=== PATIENT | female | born 1975 | race Caucasian/White ===

== ENCOUNTER 2019-10-01 16:45 | Emergency (ER) | payer BC, MEDICAID ==
[~2019-10-01] VITALS: Ht 170.2 cm; Wt 118.2 kg
[~2019-10-01 16:45] MED LIST: CYCL-1 PO
[2019-10-01] MEDS ORDERED: normal saline 1000ml 1,000 ML IV ONE (17:55)
[2019-10-01 18:08] LABS: BASOPHILS # (AUTO) 0.1 X10'3 (0-0.2); BASOPHILS % (AUTO) 0.9 % (0-1); EOSINOPHILS # (AUTO) 0.1 X10'3 (0-0.9); EOSINOPHILS % (AUTO) 1.8 % (0-6); HEMATOCRIT 41.3 % (35.0-45.0); HEMOGLOBIN 14.4 g/dl (12.0-16.0); LYMPHOCYTES # (AUTO) 1.8 X10'3 (1.1-4.8); LYMPHOCYTES % (AUTO) 23.7 % (21-51); MEAN CORPUSCULAR HEMOGLOBIN 32.8 PG (27.0-31.0); MEAN CORPUSCULAR HGB CONC 34.9 g/dL (33.0-36.5); MEAN CORPUSCULAR VOLUME 94.1 FL (78-98); MEAN PLATELET VOLUME 8.3 FL (7.4-10.4); MONOCYTES # (AUTO) 0.5 X10'3 (0-0.9); MONOCYTES % (AUTO) 6.4 % (2-12); NEUTROPHILS # (AUTO) 5.2 X10'3 (1.8-7.7); NEUTROPHILS % (AUTO) 67.2 % (42-75); PLATELET COUNT 176 X10'3 (140-440); RED BLOOD COUNT 4.39 X10'6 (4.20-5.60); RED CELL DISTRIBUTION WIDTH 12.7 % (11.5-14.5); WHITE BLOOD COUNT 7.8 X10'3 (4.5-11.0)
[2019-10-01 18:16] LABS: ALBUMIN 3.5 G/DL (3.4-5.0); ANION GAP 6 (8-16); BLOOD UREA NITROGEN 11 MG/DL (7-18); BUN/CREATININE RATIO 11.7 (6.6-38.0); CALCIUM 8.7 MG/DL (8.5-10.1); CHLORIDE 105 MMOL/L (99-107); CREATININE 0.94 MG/DL (0.40-0.90); GLUCOSE 120 MG/DL (70-104); POTASSIUM 3.6 MMOL/L (3.5-5.1); SODIUM 139 MMOL/L (135-145); TOTAL CARBON DIOXIDE 28.3 MMOL/L (24-32); eGFR 65 ML/MIN
[2019-10-01 19:42] VITALS: BP 160/94
== END 2019-10-01 19:40 | disposition home or self-care (01) ==
LOC: ER 16:47
DX: R06.02 Shortness of breath (principal); R51 Headache; R07.9 Chest pain, unspecified; R05 Cough; Z20.828 Contact with and (suspected) exposure to other viral communicable diseases; Z98.890 Other specified postprocedural states; Z79.899 Other long term (current) drug therapy
CPT/HCPCS: 36415; 71045; 80048; 85025; 93005; 99285; J7030; U0003

== ENCOUNTER 2021-05-20 07:45 | Emergency (ER) | payer SELFPAY ==
[~2021-05-20] VITALS: Ht 170.2 cm; Wt 121.2 kg
--- NOTE | 2021-05-20 08:05 | NUR ---
Pt with bite wound to left medial knee, subcutaneous tissue exposed. Bleeding controlled at this time.
[2021-05-20] MEDS ORDERED: amox tr/potassium clavulanate 875/125mg TAB PO ONE (08:20)
[2021-05-20] MEDS ORDERED: bacitracin 15gm ointment TP ONE (08:20)
[2021-05-20] MEDS ORDERED: TETanus/Pertussis (Acell)/Diphther VAC/PF (Tdap-Adult) 0.5ml syringe IMVAC ONE (08:20)
[2021-05-20] MEDS ORDERED: ondansetron 4mg rapidly disintigrating tab PO ONE (08:20)
[2021-05-20] MEDS ORDERED: AMOX-115 PO ×2 (08:27→09:09)
[2021-05-20 09:13] VITALS: BP 165/95
== END 2021-05-20 09:16 | disposition home or self-care (01) ==
LOC: ER 07:46
DX: S71.112A Laceration without foreign body, left thigh, initial encounter (principal); Z79.899 Other long term (current) drug therapy; Z98.891 History of uterine scar from previous surgery; W54.0XXA Bitten by dog, initial encounter; Y93.89 Activity, other specified; Y92.89 Other specified places as the place of occurrence of the external cause; Y99.8 Other external cause status; Z79.2 Long term (current) use of antibiotics
CPT/HCPCS: 12001; 99283

== ENCOUNTER 2024-04-20 15:48 | Emergency (ER) | payer OTHER ==
[~2024-04-20] VITALS: Ht 170.2 cm; Wt 115.2 kg
[2024-04-20] VITALS (8 sets, daily range): BP systolic 115; BP diastolic 88; PULSE 84–106; RESP 18–20; TEMP 99.6; O2SAT 92–99
[2024-04-20 16:42] LABS: BASOPHILS # (AUTO) 0.1 X10'3 (0-0.2); BASOPHILS % (AUTO) 1.1 % (0-1); EOSINOPHILS % (AUTO) 18.8 % (0-6); HEMATOCRIT 45.1 % (35.0-45.0); HEMOGLOBIN 15.4 g/dl (12.0-16.0); LYMPHOCYTES # (AUTO) 2.6 X10'3 (1.1-4.8); LYMPHOCYTES % (AUTO) 24.6 % (21-51); MEAN CORPUSCULAR HEMOGLOBIN 32.8 PG (27.0-31.0); MEAN CORPUSCULAR HGB CONC 34.2 g/dL (33.0-36.5); MEAN CORPUSCULAR VOLUME 95.9 FL (78-98); MEAN PLATELET VOLUME 8.5 FL (7.4-10.4); MONOCYTES # (AUTO) 0.7 X10'3 (0-0.9); MONOCYTES % (AUTO) 7.1 % (2-12); NEUTROPHILS # (AUTO) 5.1 X10'3 (1.8-7.7); NEUTROPHILS % (AUTO) 48.4 % (42-75); PLATELET COUNT 268 X10'3 (140-440); RED CELL DISTRIBUTION WIDTH 13.1 % (11.5-14.5); WHITE BLOOD COUNT 10.5 X10'3 (4.5-11.0)
[2024-04-20 17:03] LABS: ALANINE AMINOTRANSFERASE 25 U/L (12-78); ALBUMIN 3.9 G/DL (3.4-5.0); ALBUMIN/GLOBULIN RATIO 0.9 (1.1-1.5); ALKALINE PHOSPHATASE 44 IU/L (46-116); ANION GAP 11 (8-16); ASPARTATE AMINO TRANSFERASE 16 U/L (10-37); BILIRUBIN,TOTAL 0.2 MG/DL (0.1-1.0); BLOOD UREA NITROGEN 13 MG/DL (7-18); BUN/CREATININE RATIO 15.7 (10.0-20.0); CALCIUM 9.1 MG/DL (8.5-10.1); CHLORIDE 103 MMOL/L (99-107); CREATININE 0.83 MG/DL (0.40-0.90); GLUCOSE 101 MG/DL (70-104); POTASSIUM 4.2 MMOL/L (3.5-5.1); SODIUM 139 MMOL/L (135-145); TOTAL CARBON DIOXIDE 24.9 MMOL/L (24-32); TOTAL PROTEIN 8.3 G/DL (6.4-8.2); eCRCL 81 ML/MIN; eGFR 73 ML/MIN
[2024-04-20 17:10] LABS: PRO BRAIN NATRIURETIC PEPTIDE 122 PG/ML (0-125)
[2024-04-20] MEDS: albuterol 2.5 MG/3 ML nebule NEB ONE ×2 (17:39→21:34)
[2024-04-20] MEDS: methylPREDNISolone sod succ 125mg/2ml vial IV ONE (19:07)
[2024-04-20] MEDS: normal saline 1000ML IV soln IVB ONE (19:48)
[2024-04-20] MEDS: acetaminophen 325mg tablet PO ONE (19:48)
[2024-04-20] MEDS: ipratropium/albuterol 3ml nebule NEB ONE (19:56)
[2024-04-20 19:58] LABS: BILIRUBIN,URINE NEGATIVE (Neg); CLARITY,URINE TURBID (Clear); COLOR,URINE YELLOW (Yellow); GLUCOSE, URINE NEGATIVE (Neg); KETONES,URINE NEGATIVE (Neg); LEUKOCYTE ESTERASE ,URINE SMALL (Neg); NITRITES, URINE NEGATIVE (Neg); OCCULT BLOOD,URINE NEGATIVE (Neg); PROTEIN,URINE 100 mg/dl (Neg); URINE HCG NEGATIVE (NEG); UROBILINOGEN,URINE 0.2 E.U/dL (0.2-1.0)
[2024-04-20 20:05] LABS: UA COLLECTION TYPE CLN CATCH MIDSTREAM
[2024-04-20 20:06] LABS: BACTERIA,URINE 3+ /HPF (Neg); RBC,URINE NONE SEEN /HPF (0-2)
[2024-04-20 20:08] LABS: SQUAMOUS EPITHELIAL CELL,UR MODERATE /LPF (FEW)
[2024-04-20] MEDS ORDERED: CIPR250T4 PO (22:27)
[2024-04-20] MEDS ORDERED: ALBU8HFA INH (22:29)
[2024-04-20] MEDS ORDERED: PRED20TA PO (22:29)
== END 2024-04-20 22:48 | disposition home or self-care (01) ==
LOC: ER 15:49
DX: J40 Bronchitis, not specified as acute or chronic (principal); N39.0 Urinary tract infection, site not specified; I10 Essential (primary) hypertension; K21.9 Gastro-esophageal reflux disease without esophagitis; Z79.52 Long term (current) use of systemic steroids
CPT/HCPCS: 36415; 71046; 80053; 81001; 81025; 83880; 84484; 85025; 87088; 93005; 94640; 96361; 96374; 99285; J2919; J7030; 94760